=== PATIENT | female | born 1960 | race Caucasian/White ===

== ENCOUNTER 2019-03-10 08:59 | Day surgery (SDC) | payer BC ==
[2019-03-10] MEDS ORDERED: LIDOCAINE 4% SOLUTION 50 ML BTL (10:33)
== END 2019-03-10 13:00 | disposition home or self-care (01) ==
LOC: GIL 08:59
DX: Z12.11 Encounter for screening for malignant neoplasm of colon (principal); K64.9 Unspecified hemorrhoids; K57.30 Diverticulosis of large intestine without perforation or abscess without bleeding
CPT/HCPCS: 43239; 88305; 88312; 88313